=== PATIENT | female | born 1945 | race Caucasian/White ===

== ENCOUNTER → 2016-05-18 | Outpatient (CLI) | payer MEDICARE, MEDICAID ==
[~2016-05-18] MED LIST: AVALIDE 150-121 EACH PO; AVALIDE 300-121 EACH PO; DAILY VALUE1 EAC1 PO; EVISTA60 MG ORAL; IBUPROFEN400 MG PO; KLONOPIN0.5 MG ORAL; LEVOXYL50 MCG PO; LIDOPATCH1 EACH TP; LOVAZA1 GM ORAL; NEXIUM40 MG PO; SERTRALINE HCL100 MG PO; TENORMIN25 MG PO; TRAMADOL HCL50 MG ORAL; VIT D PO; VYTORIN 10-101 EACH ORAL
--- NOTE | 2016-05-18 16:25 | Diagnostic Imaging Report ---
Indications: Left hip pain Technique: Two views left hip Findings: Comparison: None. No fracture, dislocation, lytic destruction, periosteal reaction, surrounding soft tissue swelling, or other acute changes are demonstrated. No deformity, alignment abnormality, arthritic change, soft tissue calcification, or other chronic changes are demonstrated. IMPRESSION: Negative left hip series.
--- NOTE | 2016-05-18 16:25 | Diagnostic Imaging Report ---
Indications: Right hip pain Technique: Two views right hip Findings: Comparison: None. No fracture, dislocation, lytic destruction, periosteal reaction, surrounding soft tissue swelling, or other acute changes are demonstrated. 1 cm corticated osseous density resides adjacent to the lateral margin of the hip joint space. 3 cm eggshell-calcified nodule overlies the soft tissues of the right buttock. No deformity, alignment abnormality, arthritic change,, or other chronic changes are demonstrated. IMPRESSION: No evidence of acute abnormality the right hip Small osseous density adjacent to hip joint, nonspecific, may represent intra-articular loose body. MRI may be of benefit in further evaluation, as clinically indicated Right buttock injection granuloma
--- NOTE | 2016-05-18 16:30 | Diagnostic Imaging Report ---
Indications: Fall, injury, low back pain. Technique: 5 views of the lumbar spine Findings: Comparison: None L5 vertebral body is subluxed anteriorly on S1 at 18 mm. Remainder of vertebral alignment is intact. No fracture, lytic destruction, or other acute changes are demonstrated. There are degrees of disc space narrowing and marginal osteophyte formation are present throughout the lumbar and lower thoracic spine, most severe at L5-S1. Lower lumbar facet joints are sclerotic and hypertrophied, most prominent at L5-S1. No definite pars intra-articular is defect is demonstrated. Mild levoscoliosis is present with rotatory component. 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 No spondylolysis detected on these images. Scoliosis
--- NOTE | 2016-05-19 11:09 | Diagnostic Imaging Report ---
Indications: Fall, tailbone injury and pain Technique: Three-view sacrum and coccyx. Findings: Comparison: None No fracture, dislocation, joint space widening , surrounding soft tissue swelling/foreign body/other abnormality, or other acute changes are identified. The L5-S1 disc space is narrowed with marginal osteophyte formation. L5 vertebral body is subluxed anteriorly on S1 by up to 17 mm. Facet joint sclerotic. IMPRESSION: No evidence of acute injury. Lower lumbar degenerative spondylosis L5-S1 grade 2 anterior spondylolisthesis. Associated spondylolysis not excludable.
== END | disposition home or self-care (01) ==
LOC: RAD 14:51
DX: M25.551 Pain in right hip (principal); M25.552 Pain in left hip; M51.36 Other intervertebral disc degeneration, lumbar region; M51.34 Other intervertebral disc degeneration, thoracic region; M41.9 Scoliosis, unspecified; M43.17 Spondylolisthesis, lumbosacral region
CPT/HCPCS: 72110; 72220; 73502